=== PATIENT | female | born 1960 | race Caucasian/White ===

== ENCOUNTER 2021-01-26 23:28 | Emergency (ER) | payer BC ==
[2021-01-26] MEDS ORDERED: Sodium Chloride 0.9% 1,000 ML IV ONE (23:52)
--- NOTE | 2021-01-27 00:12 | EDM.PDOC ---
ED HPI GENERAL MEDICAL PROBLEM - General Chief Complaint: PUBLIC DEFENDER Problem Stated Complaint: vaginal bleeding Time Seen by Provider: 01/26/21 23:37 Source of Information: Reports: Patient History Limitations: Reports: No Limitations - History of Present Illness INITIAL COMMENTS - FREE TEXT/NARRATIVE: This patient is a 60 year old female that presents to the ER. Patient reports perez ving vaginal bleeding with large clots that started at 10pm tonight. Patient reports that she actually has had vaginal spotting bleeding for 3 months. Patient reports that she has been putting off going to the maid housekeeper. She reports that she had a total hysterectomy done in 2004. She reports that in 2004 they thought she may have fallopian tube cancer on the left side, but it was removed and was not cancer per patient. She reports that she no longer has to get pap smears because of the hysterectomy. Patient reports that she had a left total knee replacement 3 months ago. She reports her vaginal spotting started prior to the surgery. Patient reports that 1 month after the surgery she was on ASA 81mg, stopped 2 months ago. She denies taking any blood thinners. She denies any trauma or sexual activity. Patient denies any headache, n, v, d, f, chest pain, shortness of breath, syncope, lightheaded, dizziness. She does report constipation. She is alert and oriented. She denies any pain or discomfort. The patient does report that her mother had history of ovarian cancer. She reports her mother is currently living in snf here in [place]. Onset: Today Onset Date: 01/26/21 Onset Time: 22:00 Severity: Moderate Improves with: Reports: None Worsens with: Reports: None Associated Symptoms: Denies: Confusion, Chest Pain, Cough, cough w sputum, Diaphoresis, Fever/Chills, Headaches, Loss of Appetite, Malaise, Nausea/Vomiting, Rash, Seizure, Shortness of Breath, Syncope, Weakness - Related Data Allergies Allergy/AdvReac Type Severity Reaction Status Date / Time codeine Allergy Rash Verified 01/26/21 23:30 Sulfa (Sulfonamide Allergy Rash Verified 01/26/21 23:30 Antibiotics) Home Meds: Home Meds HCTZ/Triamterene [Dyazide 25-37.5 MG] 1 cap PO DAILY 01/26/21 [History] Valsartan 40 mg PO DAILY 01/26/21 [History] amLODIPine [Norvasc] 5 mg PO DAILY 01/26/21 [History] glipiZIDE [Glucotrol XL] 15 mg PO DAILY 01/26/21 [History] metFORMIN [Glucophage XR] 500 mg PO BID 01/26/21 [History] Past Medical History HEENT History: Reports: Impaired Vision Cardiovascular History: Reports: Hypertension Endocrine/Metabolic History: Reports: Diabetes, Type II - Past Surgical History Female Surgical History: Reports: Hysterectomy Musculoskeletal Surgical History: Reports: Knee Replacement Social & Family History - Tobacco Use Tobacco Use Status *Q: Never Tobacco User - Caffeine Use Caffeine Use: Reports: None - Recreational Drug Use Recreational Drug Use: No ED ROS GENERAL - Review of Systems Review Of Systems: See Below Constitutional: Reports: No Symptoms HEENT: Reports: No Symptoms Respiratory: Reports: No Symptoms Cardiovascular: Reports: No Symptoms Endocrine: Reports: No Symptoms GI/Abdominal: Reports: No Symptoms : Reports: Other (vaginal bleeding with large clots). Denies: Discharge, Dysuria, Flank Pain, Frequency, Hematuria, Incontinence, Pain, Urgency, Urinary Retention Musculoskeletal: Reports: No Symptoms Skin: Reports: No Symptoms Neurological: Reports: No Symptoms Psychiatric: Reports: No Symptoms Hematologic/Lymphatic: Reports: No Symptoms Immunologic: Reports: No Symptoms ED EXAM, GI/ABD - Physical Exam Exam: See Below Exam Limited By: No Limitations General Appearance: Alert, WD/WN, No Apparent Distress, Anxious Eyes: Bilateral: Normal Appearance Ears: Normal External Exam, Normal Canal, Hearing Grossly Normal, Normal TMs Nose: Normal Inspection, Normal Mucosa, No Blood Throat/Mouth: Normal Inspection, Normal Lips, Normal Teeth, Normal Gums, Normal Oropharynx, Normal Voice, No Airway Compromise Head: Atraumatic, Normocephalic Neck: Normal Inspection, Supple, Non-Tender, Full Range of Motion Respiratory/Chest: No Respiratory Distress, Lungs Clear, Normal Breath Sounds, No Accessory Muscle Use Cardiovascular: Normal Peripheral Pulses, No Edema, No Gallop, No JVD, No Murmur, No Rub, Tachycardia (106 on exam) GI/Abdominal Exam: Normal Bowel Sounds, Soft, Non-Tender, No Organomegaly, No Abnormal Bruit, No Mass, Pelvis Stable, Distended (Female) Exam: Other (Large blood clot exterior of vagina measuring 5cm x 3cm. I did not proceed with internal examination or manipulate the clot. ) Back Exam: Normal Inspection, Full Range of Motion Extremities: Normal Inspection, Normal Range of Motion, Non-Tender, No Pedal Edema, Normal Capillary Refill Neurological: Alert, Oriented, Normal Cognition, Normal Gait, No Motor/Sensory Deficits Psychiatric: Anxious Skin Exam: Warm, Dry, Intact, Normal Color, No Rash Course - Vital Signs Last Recorded V/S: Last Vital Signs Temp 97.9 F 01/26/21 23:28 Pulse 100 01/27/21 03:17 Resp 16 01/27/21 03:17 BP 139/87 01/27/21 03:17 Pulse Ox 96 01/27/21 03:17 - Orders/Labs/Meds Orders: Active Orders 24 hr Category Date Time Status Abdomen Pelvis w Cont [CT] Stat Exams 01/27/21 01:03 Taken Pelvis Non OB Comp [US] Stat Exams 01/27/21 00:12 Taken Labs: Laboratory Tests 01/26/21 01/26/21 01/26/21 Range/Units 23:47 23:55 23:55 WBC 8.6 (4.0-11.0) 10^3/uL RBC 4.56 (4.00-5.50) x10^6/uL Hgb 12.1 (12.0-16.0) g/dL Hct 37.3 (37.0-47.0) % MCV 81.8 L (83.0-97.0) fL MCH 26.5 L (27.0-32.0) pg MCHC 32.4 (32.0-36.0) g/dL RDW Coeff of Frank 14.1 (11.0-15.0) % Plt Count 537 H (150-400) 10^3/uL Immature Gran % (Auto) 0.1 (0.0-4.9) % Neut % (Auto) 60.6 (41-71) % Lymph % (Auto) 26.9 (24-44) % Traill % (Auto) 9.7 (0-10) % Eos % (Auto) 2.1 (0-6) % Baso % (Auto) 0.6 (0-1) % Neut # (Auto) 5.20 (1.80-8.00) x10^3/uL Lymph # (Auto) 2.31 (0.60-5.00) 10^3/uL Traill # (Auto) 0.83 (0.00-1.50) 10^3/uL Eos # (Auto) 0.18 (0.00-1.50) 10^3/uL Baso # (Auto) 0.05 (0.00-0.50) 10^3/uL Immature Gran # (Auto) 0.01 (0.00-0.49) 10^3/uL PT 10.4 (9.7-12.3) SEC INR 0.95 (0.92-1.18) Sodium (136-145) mEq/L Potassium (3.5-5.0) mEq/L Chloride (98-106) mEq/L Carbon Dioxide (21-32) mmol/L BUN (7-18) mg/dL Creatinine (0.6-1.0) mg/dL Est Cr Clr Drug Dosing mL/min Estimated GFR (MDRD) (>=60) mL/min Glucose (75-99) mg/dL Calcium (8.4-10.1) mg/dL Total Bilirubin (0.0-1.0) mg/dL AST (15-37) U/L ALT (12-78) U/L Alkaline Phosphatase (46-116) U/L Total Protein (6.4-8.2) g/dL Albumin (3.4-5.0) g/dL Blood Type A POSITIVE Gel Antibody Screen Negative 01/26/21 01/27/21 Range/Units 23:55 03:27 WBC (4.0-11.0) 10^3/uL RBC (4.00-5.50) x10^6/uL Hgb 11.3 L (12.0-16.0) g/dL Hct 34.7 L (37.0-47.0) % MCV (83.0-97.0) fL MCH (27.0-32.0) pg MCHC (32.0-36.0) g/dL RDW Coeff of Frank (11.0-15.0) % Plt Count (150-400) 10^3/uL Immature Gran % (Auto) (0.0-4.9) % Neut % (Auto) (41-71) % Lymph % (Auto) (24-44) % Traill % (Auto) (0-10) % Eos % (Auto) (0-6) % Baso % (Auto) (0-1) % Neut # (Auto) (1.80-8.00) x10^3/uL Lymph # (Auto) (0.60-5.00) 10^3/uL Traill # (Auto) (0.00-1.50) 10^3/uL Eos # (Auto) (0.00-1.50) 10^3/uL Baso # (Auto) (0.00-0.50) 10^3/uL Immature Gran # (Auto) (0.00-0.49) 10^3/uL PT (9.7-12.3) SEC INR (0.92-1.18) Sodium 143 (136-145) mEq/L Potassium 3.4 L (3.5-5.0) mEq/L Chloride 103 (98-106) mEq/L Carbon Dioxide 28 (21-32) mmol/L BUN 23 H (7-18) mg/dL Creatinine 0.9 (0.6-1.0) mg/dL Est Cr Clr Drug Dosing 68.60 mL/min Estimated GFR (MDRD) > 60 (>=60) mL/min Glucose 132 H (75-99) mg/dL Calcium 10.0 (8.4-10.1) mg/dL Total Bilirubin 0.3 (0.0-1.0) mg/dL AST 14 L (15-37) U/L ALT 16 (12-78) U/L Alkaline Phosphatase 83 (46-116) U/L Total Protein 7.5 (6.4-8.2) g/dL Albumin 3.6 (3.4-5.0) g/dL Blood Type Gel Antibody Screen Meds: Medications Discontinued Medications Generic Name Dose Route Start Last Admin Trade Name Freq PRN Reason Stop Dose Admin Sodium Chloride 1,000 mls @ 1,000 mls/hr 01/26/21 23:52 01/26/21 23:55 Normal Saline IV 01/27/21 00:51 1,000 mls/hr .BOLUS ONE Administration Iopamidol 100 ml 01/27/21 01:08 01/27/21 01:21 Iopamidol 755 Mg/Ml 100 Ml Bottle IVPUSH 01/27/21 01:09 100 ml ONETIME ONE Administration - Radiology Interpretation Free Text/Narrative:: Pelvis US: Post hysterectomy and bilateral salpingo-oophorectomy. The uterus and ovaries are nonvisualized in keeping with history. There is a heterogeneous mass within the pelvis measuring approximately 17cm in maximum dimension. Peripheral flow within. Uncertain etiology, finding might be better assessed with pelvic MRI with an available for, and more urgent setting,with pelvic ct. Abd/Pelvis CT with IV contrast:Heterogeneous, 17cm, mass lesion low within the pelvis occupying most of its volume and (per clinical exam) protrudes into the vaginal canal. Some of this lesion could represent hemorrhage, most of the lesion likely represents a soft tissue mass. More specific imaging characterization with pelvic MRI utlizing IV contrast may be clarifying. Gynecologic consultation advised. There are numerous rounded hypoattenuating lesions scattered throughout the liver. The presence of hepatic metastasis must be considered. This could be more specifically characterized with multiphase imaging of the liver, that can be performed at the same time as the pelvic MRI. 4mm noncalcified pulmonary nodule in the right lung base is indeterminant. CT Results Date: 01/27/21 CT Results Time: 02:31 - Re-Assessments/Exams Free Text/Narrative Re-Assessment/Exam: 01/27/21 00:00 Patient is tachycardic rate of 106, however she is HTN not hypotensive. Patient does appear to anxious and talkative. 2 large IVs were started and NS 1L Bolus initiated. I did a pelvic exam and noticed a large blood clot protruding from vagina. I did not remove clot. I then called and Spoke to Dr. Sloan PUBLIC DEFEND[employer] about this patient. Patient hgb is 12.1. Will obtain US, not transvaginal. Since hgb is stable and patient is not symptomatic as far as syncope, chest pain, shortness of breath, lightheaded; will do pelvic exam and remove the clot. Will have irrigation and 4x4 for packing available if starts to bleed. Will perform pelvic once US is complete. 01/27/21 00:31 US in progress. Patient has received 500ml NS so far, her HR is 92, BP is 167/99. She denies any symptoms at this time. 01/27/21 00:40 Palma Codility asked me to come to radiology to view US. She reports US appears to show a mass vs hematoma, vs other abnormality. She reports it also appears to have some blood flow. She reports the bladder appears full as well. Palma sent images to radiologist and spoke to radiologist to see if they wanted any further US imaging. Radiologist has requested CT scan to be done. Will not do fu rther pelvic examination at this time, will do the CT. Patient is currently HR 96. BP 136/95. She denies any symptoms. 01/27/21 02:34 I spoke to the patient about her CT and US results. She has asked me to call [facility] in [place] [facility] to consult. 01/27/21 03:08 I called [facility] to discuss patient case with Dr. Hughes. He is currently in a delivery, will call once available. BP 139/87, HR 100. Patient is anxious. No active bleeding reported by patient at this time. 01/27/21 03:47 Patient hgb is 11.3, vitals remain stable. No vaginal bleeding at this time. Spoke to Dr. Hughes [facility] at [facility] about this patient. He reports if hemodynamically stable and not bleeding, to be discharged home. He reports that he will see the patient Thursday at 4:15pm in [facility] in [facility]. He reports the patient also needs to followup with her PCP soon. He reports that if the patient starts to have more bleeding, to go to [facility] ER. I will discharge the patient home. Departure - Departure Time of Disposition: 03:49 Disposition: Home, Self-Care 01 Condition: Fair Clinical Impression: Pelvic mass in female, Vaginal bleeding, Liver lesion, Lung nodule, solitary - Discharge Information *PRESCRIPTION DRUG MONITORING PROGRAM REVIEWED*: Not Applicable *COPY OF PRESCRIPTION DRUG MONITORING REPORT IN PATIENT VERONICA: Not Applicable Instructions: Pulmonary Nodule, [id number], Pelvic Mass, Female Referrals: PCP,None [Primary Care Provider] - Forms: ED Department Discharge Additional Instructions: Followup with [facility] Dr. Hughes Thursday at 4:15pm [address] [place], [place]: [facility]: [phone] Followup with your primary care provider by calling Thursday for an appointment: To be seen soon Please go to nearest ER for worsening or return of vaginal bleeding or clots, lightheaded, passing out, chest pain, shortness of breath GO TO [facility] ER IF CLOSEST Sepsis Event Note (ED) - Evaluation Sepsis Screening Result: No Definite Risk - Focused Exam Vital Signs: Vital Signs Temp Pulse Resp BP Pulse Ox 01/27/21 03:17 100 16 139/87 96 01/27/21 00:54 96 16 159/85 H 97 01/27/21 00:06 92 16 167/96 H 98 01/26/21 23:42 102 H 166/100 H 01/26/21 23:28 97.9 F 107 H 18 172/103 H 97 - My Orders Last 24 Hours: My Active Orders 01/27/21 00:12 Pelvis Non OB Comp [US] Stat 01/27/21 01:03 Abdomen Pelvis w Cont [CT] Stat - Assessment/Plan Last 24 Hours: My Active Orders 01/27/21 00:12 Pelvis Non OB Comp [US] Stat 01/27/21 01:03 Abdomen Pelvis w Cont [CT] Stat Plan: PLEASE SEE RN NOTE FOR PFSH.
[2021-01-27 00:13] LABS: CHLORIDE,CL 103 mEq/L (98-106); SODIUM,NA 143 mEq/L (136-145)
[2021-01-27] MEDS ORDERED: Iopamidol 755 Mg/ML 100 ML Bottle IVPUSH ONE (01:08)
== END 2021-01-27 04:00 | disposition home or self-care (01) ==
LOC: CC.ED 23:28
DX: N93.9 Abnormal uterine and vaginal bleeding, unspecified (principal); K76.9 Liver disease, unspecified; R91.1 Solitary pulmonary nodule; R19.00 Intra-abdominal and pelvic swelling, mass and lump, unspecified site; I10 Essential (primary) hypertension; E11.9 Type 2 diabetes mellitus without complications; Z96.652 Presence of left artificial knee joint; Z90.710 Acquired absence of both cervix and uterus; Z90.722 Acquired absence of ovaries, bilateral; Z88.5 Allergy status to narcotic agent; Z88.2 Allergy status to sulfonamides; Z79.84 Long term (current) use of oral hypoglycemic drugs; Z79.899 Other long term (current) drug therapy
CPT/HCPCS: 36415; 74177; 76856; 80053; 85014; 85018; 85025; 85610; 86850; 86900; 86901; 99284; J7030; Q9967